=== PATIENT | female | born 1990 | race Caucasian/White ===

== ENCOUNTER 2021-03-29 00:45 | Outpatient (CLI) | payer BC, SELFPAY ==
--- NOTE | 2021-03-29 06:30 | DI.US_ITS ---
Exam(s) US NEEDLE LOCAL OTHER WO RAD EXAM: US NEEDLE LOCAL OTHER WO RAD CLINICAL HISTORY: TR4 left thyroid nodule,ultrasound guided bx,e04.1. COMPARISON: US US THYROID from 02/09/2021 US US THYROID from 02/09/2021 TECHNIQUE: Ultrasound was provided for Dr. Henderson for guidance with performing biopsy of thyroid nod ule.. FINDINGS: Please see procedure note for details. DATA REPOSITORY:
--- NOTE | 2021-03-29 08:00 | PAPNONF_PTH ---
PATIENT: Jennifer Contreras LOC: [facility] U#:[id number] AGE/SX: 30/F ROOM: RE03/29/[address]: Jagdeep Henderson MD : 1990 BED: DIS: 03/29/2021 SPEC #: [id number] RECD: 03/29/21 13:10 STATUS: JONO REOdilia #: [id number] KRISTYN: 03/29/21 08:[address]: Jagdeep Henderson DEPT: [facility] Cytology RECD BY: Jeimy Gleason ENTERED: 03/29/21 13:10 SP TYPE: MARY REILLY DR: Sabrina Mendoza NP Tissues: 1 - BODY FLUID CYTO-FINE NEEDLE [facility] Procedures: BODY FLUID CYTO-FINE NEEDLE ASPIRATE[facility] Comments: [id number]
--- NOTE | 2021-03-29 09:35 | W.PROCNOTE ---
Date of service: 03/29/21 Procedure Note Ultrasound-guided FNA, left thyroid nodule: The patient has a left-sided thyroid nodule. Because of its size, and its characteristics, FNA was indicated. Ultrasound was used to localize the nodule on the left. The largest dimension was 2 cm. Consent was obtained for ultrasound-guided FNA. The patient was then prepped and draped in appropriate fashion. 1% lidocaine with 1/100,000 epinephrine was injected in the skin and subcutaneous tissues overlying the thyroid nodule and then a 25-gauge needle was carefully introduced into the nodule to obtain biopsy. 2 individual passes were done. Cellular adequacy was evaluated by pathology and found to be adequate. Pathology did not feel that Affirma would be necessary. After ensuring adequate hemostasis, a sterile dressing was applied. The patient was allowed to sit and then to ambulate. Her vital signs remained stable. She will call me if she does not hear from me within 7 days with regard to pathology.
== END 2021-03-29 01:05 ==
PROVIDERS: PCP Physician Assistant; Visit Provider Otolaryngology
DX: D34 Benign neoplasm of thyroid gland (principal)
CPT/HCPCS: 10005; 76942; 88104